=== PATIENT | male | born 2000 | race Caucasian/White ===

== ENCOUNTER → 2020-04-22 | Outpatient (CLI) | payer OTHER ==
--- NOTE | 2020-04-22 16:47 | Diagnostic Imaging Report ---
INDICATION: Fall one week ago with right elbow pain and swelling. TIME OF EXAM: 4:23 PM. TECHNIQUE: Three views of the right elbow were obtained. FINDINGS: The alignment is normal. The joint spaces are well-maintained. No fracture, dislocation, or effusion is seen. There is moderate soft tissue swelling about the posterior elbow. IMPRESSION: Posterior soft tissue swelling. No acute bony abnormality is detected. Dictated by: Dictated on workstation # [id number]
== END ==
LOC: RAD FS 15:43
PROVIDERS: ATTEND Nurse Practitioner
DX: S50.01XA Contusion of right elbow, initial encounter (principal); W19.XXXA Unspecified fall, initial encounter
CPT/HCPCS: 73080

== ENCOUNTER 2021-02-10 19:45 | Emergency (ER) | payer OTHER ==
[~2021-02-10] VITALS: Ht 182.8 cm; Wt 110.5 kg
[2021-02-10] MEDS ORDERED: IBUPROFEN 800 MG (MOTRIN) TAB PO ONE (20:00)
[2021-02-10] MEDS ORDERED: PEN G PROC/BENZATH 1.2 M UNITS/2 ml (BICILLIN C-R) SYR IM ONE (20:00)
--- NOTE | 2021-02-10 20:02 | ED EENT ---
History of Present Illness General Chief Complaint: Oral/Throat Problems Stated Complaint: CHILLS,SORE/SWOLLEN THROAT History of Present Illness Date Seen by Provider: Feb 10, 2021 Time Seen by Provider: 19:55 Initial Comments 20 y/o male presents w 2 day Hx of sore throat that has gradually gotten worse. Pain w swallowing and drainage without cough or soa. Mild fever. Taking OTC analgesics and cold medication. Allergies and Home Medications Allergies Coded Allergies: No Known Drug Allergies (Unverified , 02/10/21) Home Medications Ibuprofen 800 Mg Tablet, 800 MG PO Q8H PRN for PAIN Prescribed by: ABRAM BISHOP on 02/10/212002 Patient Home Medication List Home Medication List Reviewed: Yes Review of Systems Review of Systems Constitutional: No chills, No fever, No malaise, No weakness Throat: see HPI, pain, swelling; denies neck stiffness, denies hoarse, denies aphonia; muffled, painful swallowing; denies difficulty with fluids Respiratory: No cough, No hemoptysis, No orthopnea; phlegm; No short of breath Gastrointestinal: No abdominal pain, No nausea, No vomiting Musculoskeletal: No back pain, No neck pain Skin: No change in color, No rash Neurological: Denies Headache, Denies Numbness, Denies Weakness Past Nhtyspq-Awgjal-Zasdjs Hx Past Med/Social Hx: Reviewed Nursing Past Med/Soc Hx Physical Exam Vital Signs Vital Signs - First Documented 02/10/21 19:50 Temp 39.6 Pulse 116 Resp 18 B/P (MAP) 125/80 (95) Pulse Ox 95 O2 Delivery Room Air Height, Weight, BMI Height: '" Weight: lbs. oz. kg; BMI Method: General Appearance: WD/WN, no apparent distress Ears: bilateral ear auricle normal, bilateral ear canal normal, bilateral ear TM normal Nose: normal inspection; No discharge, No sinus tenderness Mouth/Throat: No dental tenderness, No excessive drooling, No foreign body, No mandibular swelling, No maxillary swelling; pharynx swelling; No tongue swollen; tonsillar exudate, tonsillar swelling; No trismus, No uvula swelling; voice changes (mild muffled voice) Neck: No non-tender; supple; No limited range of motion; lymphadenopathy (R), lymphadenopathy (L) Cardiovascular: regular rate, rhythm, no edema Respiratory: chest non-tender, lungs clear Neurologic/Psychiatric: alert, normal mood/affect, oriented x 3 Skin: normal color, warm/dry Progress/Results/Core Measures Results/Orders Lab Results Laboratory Tests Test 02/10/21 19:55 Range/Units Group A Streptococcus Screen NEGATIVE NEGATIVE My Orders Orders - ABRAM BISHOP DO Rapid Strep A Screen (02/10/21 19:55) Penicillin G Proc/Jaron 1.2 Mu (Bicillin (02/10/21 20:00) Ibuprofen Tablet (Motrin Tablet) (02/10/21 20:00) Ibuprofen Tablet (Motrin Tablet) (02/10/21 20:15) Medications Given in ED Current Medications Medications Dose Ordered Sig/Dash Route Start Time Stop Time Status Last Admin Dose Admin Ibuprofen 600 mg ONCE ONCE PO 02/10/21 20:15 02/10/21 20:16 DC 02/10/21 20:10 600 MG Penicillin G Procaine/ Benzathine 1,200,000 unit ONCE ONCE IM 02/10/21 20:00 02/10/21 20:01 DC 02/10/21 20:09 1,200,000 UNIT Vital Signs/I&O 02/10/21 02/10/21 02/10/21 19:50 20:10 20:55 Temp 39.6 39.7 39.2 Pulse 116 100 Resp 18 18 B/P (MAP) 125/80 (95) 118/84 (95) Pulse Ox 95 98 O2 Delivery Room Air Room Air Progress Progress Note : Progress Note no sign of peritonsillar abscess or pharyngeal abscess. Pt able to swallow and tolerate his own secretions. Strep screen is negative. Departure Impression Primary Impression: Acute tonsillitis Qualified Codes: J03.90 - Acute tonsillitis, unspecified Disposition: HOME, SELF-CARE Condition: Stable Departure-Patient Inst. Decision time for Depature: 20:01 Referrals: NO,LOCAL PHYSICIAN (PCP/Family) Primary Care Physician Patient Instructions: Strep Throat ED Add. Discharge Instructions: Return to the ER in 24-48 hours if not improving or getting worse. Otherwise, continue salt water gargle, Ibuprofen as directed. All discharge instructions reviewed with patient and/or family. Voiced understanding. Scripts Ibuprofen (Ibuprofen) 800 Mg Tablet 800 MG PO Q8H PRN for PAIN, #30 TAB 0 Refills Prov: ABRAM BISHOP DO 02/10/21 Work/School Note: Work Release Form Date Seen in the Emergency Department: Feb 10, 2021 Return to Work: Feb 13, 2021 ABRAM BISHOP DO Feb 10, 2021 20:02
[2021-02-10] MEDS ORDERED: IBUP-1780 PO (20:03)
[2021-02-10] MEDS ORDERED: IBUPROFEN 600 MG (MOTRIN) TAB PO ONE (20:15)
[2021-02-10 20:55] VITALS: BP 118/84
== END 2021-02-10 20:55 | disposition home or self-care (01) ==
LOC: EDUNIT# 19:45 → ER FS 19:47
DX: J03.90 Acute tonsillitis, unspecified (principal)
CPT/HCPCS: 87430; 99285

== ENCOUNTER 2021-02-14 08:44 | Emergency (ER) | payer OTHER ==
[~2021-02-14 08:44] MED LIST: IBUP-1780 PO
[2021-02-14] MEDS ORDERED: NS IV 1000 ML 1,000 ML IV STA ×2 (09:06→10:31)
[2021-02-14] MEDS ORDERED: CLINDAMYCIN 600 MG/50 ML IVPB 50 ML IV STA (09:06)
--- NOTE | 2021-02-14 09:10 | ED EENT ---
History of Present Illness General Chief Complaint: Cough/Cold/Flu Symptoms Stated Complaint: SOB | FEVER | DIARRHEA | COUGH | CONGESTION Nursing Triage Note: Has been treated for strep earlier this week. States he is having lots of throat swelling and difficulty swallowing and eating. Also has cough, vomiting, and diarrhea. Source: patient History of Present Illness Date Seen by Provider: Feb 14, 2021 Time Seen by Provider: 08:47 Initial Comments 20-year-old male presenting with throat swelling and pain that has continued since getting Bicillin shot on February 10. He was seen here in the ED that time and treated for possible strep throat. His rapid strep was negative and a strep culture did not grow out any strep from his throat swelling. He had received a Bicillin 1,200,000 IU shot on February 10. He states that since then his throat has gotten more swollen and painful. He has not really been able to eat due to the pain. He has had some chicken broth and tries to keep sipping and drinking water. He states that he has had diarrhea and is just been watery. He has some fever at home as well. He was having some congestion with difficulty swallowing. He had a mild cough from his congestion and throat swelling but denies any shortness of breath. He has more severe pain and swelling on the r ight side of his throat. He is but having trouble working due to the throat pain issues that he is experiencing with this illness. 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 He did go to Urgent Care with [facility] on and was seen again. He was started on Azithromycin and Prednisone from there. He has been taking those but felt he was still getting wo rse so he came in to ED again today. Timing/Duration: gradual (Over the last 5 to 6 days) Severity: severe Location: throat Prearrival Treatment: no prearrival treatment Associated Symptoms: No change in hearing; cough (From congestion and swelling in his throat), drooling; No ear drainage, No facial pain/swelling; fever, malaise; No nasal congestion/drainage; poor fluid intake, poor solids intake; No sinus infection; sore throat; No tooth pain; voice change Allergies and Home Medications Allergies Coded Allergies: No Known Drug Allergies (Unverified , 02/10/21) Home Medications Clindamycin HCl 300 Mg Capsule, 300 MG PO TID Prescribed by: MIROSLAVA MALDONADO on 02/14/21 1208 Hydrocodone/Acetaminophen 15 Ml Solution, 15 ML PO Q4H PRN for PAIN-SEVERE (8- 10) 8 OZ BOTTLE Prescribed by: MIROSLAVA MALDONADO on 02/14/21 1209 Ibuprofen 800 Mg Tablet, 800 MG PO Q8H PRN for PAIN Prescribed by: ABRAM BIHSOP on 02/10/212002 Patient Home Medication List Home Medication List Reviewed: Yes Review of Systems Review of Systems Constitutional: chills, fever, malaise Eyes: No Symptoms Reported Ears: Denies Bloody Discharge, Denies Clear Discharge, Denies Purulent Discharge Nose: congestion (Some drainage down the back of his throat) Mouth: no symptoms reported Throat: pain, swelling, discharge, hoarse, muffled, painful swallowing, dif ficulty with fluids Respiratory: cough (Due to drainage in the back of throat and swelling in his throat); No stridor, No wheezing Cardiovascular: no symptoms reported Gastrointestinal: No abdominal pain; diarrhea; No nausea Musculoskeletal: no symptoms reported Skin: No rash Neurological: Denies Headache Hematologic/Lymphatic: Denies Blood Clots Past Wvyjecc-Zdqabx-Tclgve Hx Past Med/Social Hx: Reviewed Nursing Past Med/Soc Hx Patient Social History Alcohol Use: Denies Use Smoking Status: Never a Smoker Recent Infectious Disease Expo: No Recent Hopitalizations: No Seasonal Allergies Seasonal Allergies: No Past Medical History Surgeries: Yes Orthopedic Respiratory: No Cardiac: No Neurological: No Genitourinary: No Gastrointestinal: No Musculoskeletal: No Endocrine: No HEENT: No Cancer: No Psychosocial: No Integumentary: No Physical Exam Vital Signs Vital Signs - First Documented 02/14/21 08:56 Temp 36.7 Pulse 107 Resp 18 B/P (MAP) 128/79 (95) Pulse Ox 99 Height, Weight, BMI Height: '" Weight: lbs. oz. kg; 33.00 BMI Method: General Appearance: WD/WN, mild distress Eyes: bilateral eye PERRL, bilateral eye EOMI Ears: bilateral ear auricle normal, bilateral ear canal normal, bilateral ear TM red Nose: normal inspection Mouth/Throat: excessive drooling, pharynx swelling, pharynx tenderness, tonsillar exudate, tonsillar swelling (right greater than left), voice changes Neck: supple, lymphadenopathy (R), lymphadenopathy (L) Cardiovascular: normal peripheral pulses, regular rate, rhythm, no murmur Respiratory: chest non-tender, lungs clear, normal breath sounds Gastrointestinal: non tender, soft, no pulsatile mass, abnormal bowel sounds (hyperactive) Neurologic/Psychiatric: program management analyst II-XII nml as tested, no motor/sensory deficits, alert, oriented x 3 Skin: normal color, warm/dry Progress/Results/Core Measures Results/Orders Lab Results Laboratory Tests Test 02/14/21 09:08 02/14/21 12:10 Range/Units White Blood Count 13.4 H 4.3-11.0 10^3/uL Red Blood Count 5.23 4.35-5.85 10^6/uL Hemoglobin 15.2 13.3-17.7 G/DL Hematocrit 44 40-54 % Mean Corpuscular Volume 84 80-99 FL Mean Corpuscular Hemoglobin 29 25-34 PG Mean Corpuscular Hemoglobin Concent 35 32-36 G/DL Red Cell Distribution Width 13.8 10.0-14.5 % Platelet Count 305 130-400 10^3/uL Mean Platelet Volume 9.2 7.4-10.4 FL Immature Granulocyte % (Auto) 1 % Neutrophils (%) (Auto) 80 H 42-75 % Lymphocytes (%) (Auto) 6 L 12-44 % Monocytes (%) (Auto) 12 0-12 % Eosinophils (%) (Auto) 0 0-10 % Basophils (%) (Auto) 0 0-10 % Neutrophils # (Auto) 10.8 H 1.8-7.8 X 10^3 Lymphocytes # (Auto) 0.8 L 1.0-4.0 X 10^3 Monocytes # (Auto) 1.6 H 0.0-1.0 X 10^3 Eosinophils # (Auto) 0.1 0.0-0.3 10^3/uL Basophils # (Auto) 0.0 0.0-0.1 10^3/uL Immature Granulocyte # (Auto) 0.1 0.0-0.1 10^3/uL Neutrophils % (Manual) 88 % Lymphocytes % (Manual) 3 % Monocytes % (Manual) 9 % Sodium Level 134 L 135-145 MMOL/L Potassium Level 3.5 L 3.6-5.0 MMOL/L Chloride Level 93 L 98-107 MMOL/L Carbon Dioxide Level 27 21-32 MMOL/L Anion Gap 14 5-14 MMOL/L Blood Urea Nitrogen 11 7-18 MG/DL Creatinine 0.82 0.60-1.30 MG/DL Estimat Glomerular Filtration Rate > 60 BUN/Creatinine Ratio 13 Glucose Level 114 H 70-105 MG/DL Lactic Acid Level 0.93 0.50-2.00 MMOL/L Calcium Level 8.9 8.5-10.1 MG/DL Corrected Calcium 9.0 8.5-10.1 MG/DL Total Bilirubin 0.3 0.1-1.0 MG/DL Aspartate Amino Transf (AST/SGOT) 12 5-34 U/L Alanine Aminotransferase (ALT/SGPT) 13 0-55 U/L Alkaline Phosphatase 77 40-136 U/L C-Reactive Protein 16.05 H <0.50 MG/DL Total Protein 7.7 6.4-8.2 GM/DL Albumin 3.9 3.2-4.5 GM/DL Monoscreen NEGATIVE NEGATIVE Group A Streptococcus Screen NEGATIVE NEGATIVE Urine Color YELLOW Urine Clarity CLEAR Urine pH 6.5 5-9 Urine Specific [place] 1.010 L 1.016-1.022 Urine Protein TRACE H NEGATIVE Urine Glucose (UA) NEGATIVE NEGATIVE Urine Ketones 1+ H NEGATIVE Urine Nitrite NEGATIVE NEGATIVE Urine Bilirubin NEGATIVE NEGATIVE Urine Urobilinogen 0.2 < = 1.0 MG/DL Urine Leukocyte Esterase NEGATIVE NEGATIVE Urine RBC (Auto) 2+ H NEGATIVE Urine RBC 10-25 H /HPF Urine WBC 0-2 /HPF Urine Squamous Epithelial Cells 2-5 /HPF Urine Crystals NONE /LPF Urine Bacteria TRACE /HPF Urine Casts NONE /LPF Urine Mucus NEGATIVE /LPF Urine Culture Indicated NO My Orders Orders - MIROSLAVA MALDONADO MD Cbc With Automated Diff (02/14/21 09:06) Comprehensive Metabolic Panel (02/14/21 09:06) Blood Culture (02/14/21 09:06) Rapid Strep A Screen (02/14/21 09:06) Monotest (02/14/21 09:06) Ua Culture If Indicated (02/14/21 09:06) Ed Iv/Invasive Line Start (02/14/21 09:06) Crp Fs (02/14/21 09:06) Lactic Acid Analyzer (02/14/21 09:06) Ct Neck (Soft Tissue) W (02/14/21 09:06) Ns Iv 1000 Ml (Sodium Chloride 0.9%) (02/14/21 09:06) Clindamycin 600 Mg/50 Ml Ivpb (Cleocin P (02/14/21 09:06) Dexamethasone Injection (Decadron Inje (02/14/21 09:06) Stool Culture (02/14/21 09:11) Fecal Wbc (02/14/21 09:11) C Difficile Ag + Toxin A/B. (02/14/21 09:11) Isolation Central Supply Req (02/14/21 09:11) Iohexol Injection (Omnipaque 350 Mg/Ml 1 (02/14/21 09:15) Received Contrast (Hold Metformin- Contr (02/14/21 09:15) Sodium Chloride Flush (Catheter Flush Sy (02/14/21 09:15) Ns (Ivpb) (Sodium Chloride 0.9% Ivpb Bag (02/14/21 09:15) Manual Differential (02/14/21 09:08) Fentanyl Inj (Sublimaze Injection) (02/14/21 10:31) Ondansetron Injection (Zofran Injectio (02/14/21 10:31) Ns Iv 1000 Ml (Sodium Chloride 0.9%) (02/14/21 10:31) Medications Given in ED Current Medications Medications Dose Ordered Sig/Dash Route Start Time Stop Time Status Last Admin Dose Admin Iohexol 75 ml ONCE ONCE IV 02/14/21 09:15 02/14/21 09:16 DC 02/14/21 09:31 75 ML Sodium Chloride 10 ml NEEDED PRN IV 02/14/21 09:15 02/14/21 12:43 DC 02/14/21 09:31 10 ML Sodium Chloride 100 ml ONCE ONCE IV 02/14/21 09:15 02/14/21 09:16 DC 02/14/21 09:31 100 ML Vital Signs/I&O 02/14/21 02/14/21 08:56 12:17 Temp 36.7 Pulse 107 97 Resp 18 20 B/P (MAP) 128/79 (95) 126/74 Pulse Ox 99 95 Blood Pressure Mean: 95 Progress Progress Note #1: Progress Note Recheck the rapid strep test to see if it might be positive and the previous swab was not adequate or have a false negative. Ordered Monospot as well as labs and cultures with a lactic acid. Will give IV fluids for hydration, D ecadron for pain and swelling, clindamycin 600 mg IV for antibiotic coverage. With the degree of pain and swelling what looks like some going up onto the soft palate and concern for possible peritonsillar abscess will order a CT scan to evaluate that. Differential diagnosis includes strep pharyngitis, mono nucleosis peritonsillar abscess, viral tonsillitis, sinusitis Progress Note #2: Progress Note Labs show elevated white blood cell count with a left shift. The chemistry had a negative lactic acid but an elevated CRP. LFTs and renal function appears stable. The CT scan came back showing tonsillitis and inflammatory changes but no definite abscess or fluid collection that was drainable. Will check to see if patient is feeling like the swelling and pain is any better after steroids and antibiotics. When checking with pt he was saying it felt the same and he did not feel any better. He asked if he could just have his tonsils removed. I advised him that with failing outpatient therapy I would recommend admit for IV antibiotics, hydration and steroids with pain control. He was agreeable to this and stated he was ok with going to [facility]. In the meantime will give an additional Liter of NS for hydration and try fentanyl for pain, zofran to prevent n/v from the pain medicine. 1033 d/w Dr. Whittington data reduction technician for hospitalist service. Reviewed case with him and he reviewed the chart and the patient. As there is no ENT coverage or maxillofacial surgery coverage at [facility] he recommended having the patient be admitted at a larger facility. Before I could going to review this with the patient he told the nurse that he wanted to be admitted in [facility] where he originally lives and where his parents live. 1108 call to [facility] in [place], [place] to try and see if they had services available for the patient. Given some basic information and call back number for Admit nurse to call me back. 1131 YANELI Stoll, the admit nurse from [facility] in [place] called and took more detailed information on the patient. he was not sure if they had ENT or Maxillofacial surgery coverage this weekend. He stated that he would call back once he had a chance to call and check with providers. 1142 YANELI Stoll, from [facility] called back and states no ENT or Maxillofacial surgeon coverage for the weekend. Hospitalist did not feel pt met criteria for medical admit and with no ENT back up they did not feel he was appropriate to transfer to [facility]. [id number] d/w pt and his girlfriend about [facility] and [facility] both saying they do not have ENT/Facial surgery coverage and would not be able to admit pt. Pt immediately states that he wants to go home rather than call around to any more facilities. He had mild improvement in pain after treatment. Counseled patient that he needs to stop the Zithromax and start clindamycin. Will continue the steroids until gone. Have him push fluids continue to try and stay hydrated. Encouraged to follow-up with ENT on Tuesday or Tuesday for recheck. If he has worsening symptoms or difficulty breathing before he can see ENT that he is to return or be seen by medical facility right away. Will prescribe some liquid hydrocodone to help with pain as well as the capsules of clindamycin. Again stop the Zithromax and take clindamycin instead. Patient refusing to be admitted signed declination form as he is not willing to be transferred and have other care and testing done, as well as seeing an ENT doctor. Diagnostic Imaging Diagonstic Imaging: CT Plain Films/CT/US/NM/MRI: other (soft tissue neck) Comments NAME: JUSTINE CARRANZA [facility] REC#: [id number] PT STATUS: REG ER : 2000 PHYSICIAN: MIROSLAVA MALDONADO MD ADMIT DATE: 02/14/21/ER FS Draft Date of Exam:02/14/21 CT NECK (SOFT TISSUE) W PROCEDURE: CT neck soft tissue with contrast. TECHNIQUE: Multiple contiguous axial images were obtained through the neck after the administration of contrast. Auto Exposure Controls were utilized during the CT exam to meet ALARA standards for radiation dose reduction. INDICATION: Throat pain and swelling for 5 days. COMPARISON: None. Findings: The tonsils are edematous and enlarged bilaterally. No focal fluid collection is seen in the tonsils. There is mass effect on the airway resulting in narrowing of the airway at the level of the oropharynx. The remainder of the airway is patent. The laryngeal structures are symmetric. No prevertebral or retropharyngeal fluid collections. The parapharyngeal fat planes are preserved. Bilateral reactive cervical lymphadenopathy is noted. The parotid, submandibular and thyroid gland are unremarkable. The vascular structures the neck demonstrate no evidence of high-grade stenosis on this nondedicated exam. The visualized lung apices are clear. The visualized intracranial contents demonstrate no evidence of pathologic intracranial enhancement or intracranial mass effect. Visualized orbital contents are unremarkable. Retained secretions are seen in the left maxillary sinus. The mastoids and middle ears are clear. No acute osseous abnormality in the cervical spine. Impression: 1. Findings consistent with acute tonsillitis bilaterally. No drainable fluid collection is seen. There is associated narrowing of the airway in the oropharynx and bilateral reactive cervical lymphadenopathy. Recommend close follow-up to ensure the airway remains patent. 2. Sinus disease involving the left maxillary sinus. Dictated on workstation # [id number] Dict: 02/14/21 0941 Trans: 02/14/21 0955 [facility] [id number] Interpreted by: GABBY LOVING DO Electronically signed by: Reviewed: Reviewed by Me Departure Impression Primary Impression: Acute tonsillitis Qualified Codes: J03.90 - Acute tonsillitis, unspecified Additional Impressions: Left maxillary sinusitis Pharyngeal swelling Disposition: HOME, SELF-CARE Condition: Stable Departure-Patient Inst. Decision time for Depature: 12:09 Referrals: NO,LOCAL PHYSICIAN (PCP/Family) Primary Care Physician Patient Instructions: Sore Throat, Adult ED, Sinusitis, Adult ED Add. Discharge Instructions: Stop the azithromycin and take clindamycin instead. Continue to keep sipping on fluids and work on staying hydrated. Continue with broth and jello and liquid diet until you can swallow better. If you have to use the Hydrocodone for pain consider taking Miralax if you are getting constipated. If you have trouble breathing and your throat is getting more swollen then you need to call 911 or be seen immediately as you may need to have surgery or need something done to make sure you can breath ok with you having the swelling from your tonsils being infected. Check Tuesday, or Tuesday at the latest, with an ENT or throat specialist for follow up on your pharyngitis and tonsillitis infection All discharge instructions reviewed with patient and/or family. Voiced understanding. Scripts Hydrocodone/Acetaminophen (Hydrocodon-Acetamin 7.5-325/15 ML) 15 Ml Solution 15 ML PO Q4H PRN for PAIN-SEVERE (8-10) for 3 Days, #270 ML 0 Refills 8 OZ BOTTLE Prov: MIROSLAVA MALDONADO MD 02/14/21 Clindamycin HCl (Clindamycin HCl) 300 Mg Capsule 300 MG PO TID for pharyngitis for 10 Days, #30 CAP 0 Refills Prov: MIROSLAVA MALDONADO MD 02/14/21 Images Mouth/Nose 1 - Swelling (swollen, red, inflammed tonsils and posterior pharynx with xudate, right greater than left. Tonsils are at least 3+ swollen and almost touching in midline) MIROSLAVA MALDONADO MD Feb 14, 2021 09:10
[2021-02-14] MEDS ORDERED: CATHETER FLUSH 10 ML SYR IV PRN (09:15)
[2021-02-14] MEDS ORDERED: HOLD METFORMIN - RECEIVED CONTRAST 20 ML VIAL IV SCH (09:15)
[2021-02-14] MEDS ORDERED: IOHEXOL 350 MG/ML 100 ML (OMNIPAQUE 350) VIAL IV ONE (09:15)
[2021-02-14] MEDS ORDERED: NS 100 ML (IVPB) BAG IV ONE (09:15)
[2021-02-14 09:21] LABS: BASOPHILS % (AUTO) 0 % (0-10); EOSINOPHILS # (AUTO) 0.1 10^3/uL (0.0-0.3); EOSINOPHILS % (AUTO) 0 % (0-10); HEMATOCRIT 44 % (40-54); HEMOGLOBIN 15.2 G/DL (13.3-17.7); LYMPHOCYTES # (AUTO) 0.8 X 10^3 (1.0-4.0); LYMPHOCYTES % (AUTO) 6 % (12-44); MEAN CORPUSCULAR HEMOGLOBIN 29 PG (25-34); MEAN CORPUSCULAR HGB CONC 35 G/DL (32-36); MEAN CORPUSCULAR VOLUME 84 FL (80-99); MEAN PLATELET VOLUME 9.2 FL (7.4-10.4); MONOCYTES # (AUTO) 1.6 X 10^3 (0.0-1.0); MONOCYTES % (AUTO) 12 % (0-12); NEUTROPHILS # (AUTO) 10.8 X 10^3 (1.8-7.8); NEUTROPHILS % (AUTO) 80 % (42-75); PLATELET COUNT 305 10^3/uL (130-400); WHITE BLOOD COUNT 13.4 10^3/uL (4.3-11.0)
[2021-02-14 09:31] LABS: LYMPHOCYTES % (MANUAL) 3 %; MONOCYTES % (MANUAL) 9 %; NEUTROPHILS % (MANUAL) 88 %
[2021-02-14 09:43] LABS: ALANINE AMINOTRANSFERASE 13 U/L (0-55); ALBUMIN 3.9 GM/DL (3.2-4.5); ALKALINE PHOSPHATASE 77 U/L (40-136); BILIRUBIN,TOTAL 0.3 MG/DL (0.1-1.0); BUN/CREATININE RATIO 13; CALCIUM 8.9 MG/DL (8.5-10.1); CARBON DIOXIDE 27 MMOL/L (21-32); CHLORIDE 93 MMOL/L (98-107); CREATININE SERUM 0.82 MG/DL (0.60-1.30); GFR ESTIMATED > 60; GLUCOSE 114 MG/DL (70-105); POTASSIUM 3.5 MMOL/L (3.6-5.0); SODIUM 134 MMOL/L (135-145); TOTAL PROTEIN 7.7 GM/DL (6.4-8.2)
--- NOTE | 2021-02-14 09:55 | Diagnostic Imaging Report ---
PROCEDURE: CT neck soft tissue with contrast. TECHNIQUE: Multiple contiguous axial images were obtained through the neck after the administration of contrast. Auto Exposure Controls were utilized during the CT exam to meet ALARA standards for radiation dose reduction. INDICATION: Throat pain and swelling for 5 days. COMPARISON: None. Findings: The tonsils are edematous and enlarged bilaterally. No focal fluid collection is seen in the tonsils. There is mass effect on the airway resulting in narrowing of the airway at the level of the oropharynx. The remainder of the airway is patent. The laryngeal structures are symmetric. No prevertebral or retropharyngeal fluid collections. The parapharyngeal fat planes are preserved. Bilateral reactive cervical lymphadenopathy is noted. The parotid, submandibular and thyroid gland are unremarkable. The vascular structures the neck demonstrate no evidence of high-grade stenosis on this nondedicated exam. The visualized lung apices are clear. The visualized intracranial contents demonstrate no evidence of pathologic intracranial enhancement or intracranial mass effect. Visualized orbital contents are unremarkable. Retained secretions are seen in the left maxillary sinus. The mastoids and middle ears are clear. No acute osseous abnormality in the cervical spine. Impression: 1. Findings consistent with acute tonsillitis bilaterally. No drainable fluid collection is seen. There is associated narrowing of the airway in the oropharynx and bilateral reactive cervical lymphadenopathy. Recommend close follow-up to ensure the airway remains patent. 2. Sinus disease involving the left maxillary sinus. Dictated by: Dictated on workstation # [id number]
[2021-02-14] MEDS ORDERED: fentaNYL INJ 100 MCG/2 ML AMP IVP STA (10:31)
[2021-02-14] MEDS ORDERED: ONDANSETRON 4 MG/2 ML (SDV) Z0FRAN IVP STA (10:31)
[2021-02-14] MEDS ORDERED: HYDR15SO8 PO (12:08)
[2021-02-14] MEDS ORDERED: CLIN300C12 PO (12:08)
[2021-02-14 12:17] VITALS: BP 126/74
[2021-02-14 12:29] LABS: BACTERIA,URINE TRACE /HPF; BILIRUBIN,URINE NEGATIVE (NEGATIVE); CLARITY,URINE CLEAR; COLOR,URINE YELLOW; GLUCOSE, URINE (UA) NEGATIVE (NEGATIVE); KETONES,URINE 1+ (NEGATIVE); LEUKOCYTE ESTERASE ,URINE NEGATIVE (NEGATIVE); NITRITE,URINE NEGATIVE (NEGATIVE); PH,URINE 6.5 (5-9); PROTEIN,URINE TRACE (NEGATIVE); WBC,URINE 0-2 /HPF
== END 2021-02-14 12:17 | disposition home or self-care (01) ==
LOC: EDUNIT# 08:44 → ER FS 08:46
DX: J03.90 Acute tonsillitis, unspecified (principal); J32.0 Chronic maxillary sinusitis; J39.2 Other diseases of pharynx
CPT/HCPCS: 36415; 70491; 80053; 81000; 83605; 85007; 85027; 86141; 86308; 87040; 87430

== ENCOUNTER 2023-01-09 18:52 | Emergency (ER) | payer OTHER ==
[~2023-01-09 18:52] MED LIST changes: +CLIN-144 PO; +HYDR15SO8 PO
[2023-01-09] MEDS: morphine INJ 10 MG/ML 1ML (SYR OR VIAL) IVP STA ×2 (19:11→19:15)
[2023-01-09] MEDS ORDERED: BACITRACIN OINTMENT 28 GM TUBE TOP STA (19:11)
[2023-01-09] MEDS ORDERED: morphine INJ 10 MG/ML 1ML (SYR OR VIAL) IM STA (19:12)
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
[2023-01-09] MEDS ORDERED: IBUP-1780 PO (19:29)
[2023-01-09] MEDS ORDERED: HYDR-3820 PO (19:29)
[2023-01-09 19:34] VITALS: BP 158/102
== END 2023-01-09 19:35 | disposition home or self-care (01) ==
LOC: EDUNIT# 18:52 → ER FS 18:53
DX: T20.26XA Burn of second degree of forehead and cheek, initial encounter (principal); T20.27XA Burn of second degree of neck, initial encounter; T20.212A Burn of second degree of left ear [any part, except ear drum], initial encounter; T28.412A Burn of left ear drum, initial encounter; Z28.310 Unvaccinated for COVID-19; X12.XXXA Contact with other hot fluids, initial encounter
CPT/HCPCS: 99284